=== PATIENT | female | born 1990 | race Hispanic/Latino ===

== ENCOUNTER 2021-04-26 13:52 | Emergency (ER) | payer OTHER ==
[~2021-04-26] VITALS: Ht 157.5 cm; Wt 102.1 kg
[2021-04-26 14:15] VITALS: BP 108/56
[2021-04-26] MEDS ORDERED: KETOROLAC 15MG/ML VIAL (15MG/ML) IV SCH (15:15)
[2021-04-26] MEDS ORDERED: 0.9%NACL 1000ML 1,000 ML IV SCH (15:15)
[2021-04-26] MEDS ORDERED: PROCHLORPERAZINE EDISYLATE 5 MG/ML 2 ML VIAL IVP SCH (15:15)
[2021-04-26] MEDS ORDERED: 0.9%NACL 1000ML 1,000 ML IV ONE (15:18)
[2021-04-26 15:19] LABS: HEMATOCRIT 33.5 % (36-48); MEAN CORPUSCULAR HEMOGLOBIN 24.2 pg (27.0-33.0); MEAN CORPUSCULAR HGB CONC 30.1 g/dL (32.0-36.0); MEAN CORPUSCULAR VOLUME 80.1 fL (79-99); PLATELET COUNT (AUTO) 284 K/uL (130-400); RED BLOOD CELL COUNT(AUTO) 4.18 MIL/uL (4.00-5.50); RED CELL DISTRIBUTION WIDTH 14.4 % (11.0-15.5); WHITE BLOOD COUNT (AUTO) 8.2 K/uL (4.8-10.8)
[2021-04-26 15:25] VITALS: BP 108/56
[2021-04-26 15:29] LABS: CREATININE 0.6 mg/dL (0.5-1.5); POTASSIUM 3.6 mmol/L (3.5-5.1)
[2021-04-26 15:34] LABS: ALBUMIN 3.8 g/dL (3.5-5.0); BILIRUBIN,TOTAL 0.4 mg/dL (0.2-1.0); TOTAL PROTEIN, SERUM 8.1 g/dL (6.0-8.3)
[2021-04-26] MEDS ORDERED: PROCHLORPERAZINE EDISYLATE 10 MG/2 ML VIAL IV ONE (15:37)
[2021-04-26] MEDS ORDERED: IBUP-2070 PO (15:46)
== END 2021-04-26 16:23 | disposition home or self-care (01) ==
LOC: EDH 13:52
DX: F43.9 Reaction to severe stress, unspecified (principal); R55 Syncope and collapse; R51.9 Headache, unspecified; R50.9 Fever, unspecified; R05 Cough; R06.02 Shortness of breath; V49.09XA Driver injured in collision with other motor vehicles in nontraffic accident, initial encounter; Y93.89 Activity, other specified; Y92.410 Unspecified street and highway as the place of occurrence of the external cause; Y99.8 Other external cause status
CPT/HCPCS: 36415; 80053; 84484; 85027; 93005; 96374; 96375; 99284; J0780; J1885; J7030

== ENCOUNTER 2021-05-10 14:24 | Emergency (ER) | payer OTHER ==
[~2021-05-10] VITALS: Ht 160 cm; Wt 68.0 kg
[~2021-05-10 14:24] MED LIST: IBUP-2070 PO
[2021-05-10 14:26] VITALS: BP 111/65
[2021-05-10] MEDS ORDERED: KETOROLAC 30MG VIAL (30MG/ML) IM SCH (16:30)
[2021-05-10] MEDS ORDERED: LEVO750T46 PO (16:33)
[2021-05-10] MEDS ORDERED: IBUP-2070 PO (16:33)
[2021-05-10] MEDS ORDERED: CORTSOL OT (16:33)
== END 2021-05-10 17:00 | disposition home or self-care (01) ==
LOC: EDH 14:24
DX: H66.92 Otitis media, unspecified, left ear (principal); Z90.49 Acquired absence of other specified parts of digestive tract; Z79.899 Other long term (current) drug therapy
CPT/HCPCS: 96372; 99283; J1885